=== PATIENT | female | born 1995 | race Caucasian/White ===

== ENCOUNTER 2024-03-16 11:40 | Emergency (ER) | payer SELFPAY ==
--- OUTSIDE RECORDS SUMMARY | 2024-03-16 11:43 | XMS REPORT | Continuity of Care Document ---
Author Name Unknown Address [address] [facility] [address] [place] [id number] [facility] thconnect Address [address] [facility] 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 Attending Clinician Yris baptiste KAIWHAKAHAERE, NURSE Attending Clinician Unavailable PHI ROSADO Admitting Clinician Un available Payers Payer Name Policy Type Policy Number Effective Date Expirati on Date Source [facility] Monitise [id number] 2022 00:00:00 [employer] [id number] 2019 00:00:00 Problems Condition Name Condition Details Condition Category Status Onset Date Resolution Date Last Treatment Date Treating Clinician Comments Source Nausea Nausea Disease Active - 00:00: 00 [facility] Tobacco use disorder complicati ng , childbirth , or puerperium , antepartum Tobacco use disorder complicati ng , childbirth , or puerperium , antepartum Disease Active 06-24 00:00: 00 Overview: Formattin g of this note might be different from the original. ICD10 Diagnosis Term [employer] Professor Utility [facility] Bipolar depression Bipolar depression Disease Active 06-24 00:00: 00 [facility] Seizure disorder in , antepartum Seizure disorder in , antepartum Disease Active 06-24 00:00: 00 [facility] History of substance abuse History of substance abuse Disease Active 06-24 00:00: 00 [facility] Supervisio n of high-risk of young primigravi da Supervisio n of high-risk of young primigravi da Disease Active 06-24 00:00: 00 [facility] History of Major depression , recurrent History of Major depression , recurrent Problem Resolve d [facility] History of Need for diphtheria -tetanus-p ertussis (Tdap) vaccine History of Need for diphtheria -tetanus-p ertussis (Tdap) vaccine Problem Resolve d [facility] History of Seizures History of Seizures Problem Resolve d [facility] control counseling control counseling Problem Active [facility] Absence seizure Absence seizure Problem Active [facility] Bipolar disorder (manic depression ) Bipolar disorder (manic depression ) Problem Active [facility] Routine follow-up Routine follow-up Problem Active [facility] Contracept ion management Contracept ion management Problem Active [facility] Allergies, Adverse Reactions, Alerts Allergy Name Allergy Type Status Severity Reaction(s) Onset Date Inactive Date Treating Clinician Comments Source QUETIAPI NE DRUG INGREDI Active Unknown-Cmnt 10-29 00:00: 00 [facility] Quetiapi ne Propensi ty to adverse reaction s Active Unknown - See comments 10-29 00:00: 00 Patient says she gets "all side effects" [facility] NO KNOWN ALLERGIE S Drug Class Active [facility] Social History Social Habit Start Date Stop Date Quantity Comments Source History of tobacco use Cigarette Smoker [facility] Exposure to SARS-CoV-2 (event) Not sure [facility] Alcohol intake 2020-02-15 00:00:00 2020-02-15 00:00:00 Current non-drinker of alcohol (finding) [facility] Tobacco use and exposure 2014-06-22 00:00:00 2014-06-22 00:00:00 Smokeless tobacco non-user [facility] Tobacco Comment 2014-06-22 00:00:00 2014-06-22 00:00:00 1-2 cig every 1-2 day(states takes a couple of puffs only) [facility] Sex Assigned At 1995 00:00:00 1995 00:00:00 [facility] Smoking Status Start Date Stop Date Source Never smoked tobacco (finding) [facility] Smokes tobacco daily 2014-06-22 00:00:00 [facility] Medications Ordered Medication Name Filled Medication Name Start Date Stop Date Current Medication? Ordering Clinician Indication Dosage Frequency Signature (SIG) Comments Components Source Norethindro ne 0.35 MG Oral Tablet Norethindro ne 0.35 MG Oral Tablet 12-21 00:00: 00 Yes LUIS FELIPE ALCARAZ M.D. 1 QD TAKE 1 TABLET DAILY. [facility] DIVALPROEX SODIUM (DEPAKOTE ORAL) 08-14 17:13: 32 Yes Take by mouth. [facility] albuterol 90 mcg/actuati on inhaler 08-14 17:13: 32 Yes 2{puff} Inhale 2 Puffs every 6 (six) hours as needed for Wheezing or Shortness of Breath. [facility] FOLIC ACID ORAL 08-14 17:11: 07 Yes Take by mouth. [facility] QUETIAPINE FUMARATE (SEROQUEL ORAL) 08-14 17:11: 07 Yes Take by mouth. [facility] LORAZEPAM (ATIVAN ORAL) 08-14 17:11: 07 Yes Take by mouth. [facility] PREGABALIN (LYRICA ORAL) 08-14 17:11: 07 Yes Take by mouth. [facility] DIVALPROEX SODIUM (DEPAKOTE ORAL) 08-14 12:13: 32 Yes Take by mouth. [facility] albuterol 90 mcg/actuati on inhaler 08-14 12:13: 32 Yes 2{puff} Inhale 2 Puffs every 6 (six) hours as needed for Wheezing or Shortness of Breath. [facility] FOLIC ACID ORAL 08-14 12:11: 07 Yes Take by mouth. [facility] bromphenira mine-pseudo ephedrine-D M 2-30-10 mg/5 mL syrup 08-14 00:00: 00 Yes [id number] 10mL Take 10 mL by mouth 4 (four) times daily as needed for Cough. [facility] ondansetron (ZOFRAN, HYDROCHLORI DE,) 4 mg tablet 07-19 00:00: 00 Yes 4mg Take 1 Tab by mouth every 8 (eight) hours. [facility] ARIPIPRAZOL E (ABILIFY ORAL) 06-22 16:11: 36 Yes Take by mouth. [facility] ARIPIPRAZOL E (ABILIFY ORAL) 06-22 10:11: 36 Yes Take by mouth. [facility] multivitami n ( VITAMIN) tablet 06-22 00:00: 00 Yes 1{tbl} Take 1 Tab by mouth daily. [facility] lamoTRIgine 200 MG Oral Tablet lamoTRIgine 200 MG Oral Tablet Yes [facility] lamoTRIgine 100 MG Oral Tablet lamoTRIgine 100 MG Oral Tablet Yes [facility] Abilify TABS Abilify TABS Yes [facility] Folic Acid TABS Folic Acid TABS Yes [facility] Ferrous Sulfate TABS Ferrous Sulfate TABS Yes [facility] Vital Signs Vital Name Observation Time Observation Value Comments Marco Antonio collins Systolic blood pressure 2022-10-29 21:10:13 145 mm[Hg] [facility] Diastolic blood pressure 2022-10-29 21:10:13 87 mm[Hg] [facility] Heart rate 2022-10-29 21:10:13 103 /min [facility] Body temperature 2022-10-29 21:10:13 37.39 Marleni [facility] Respiratory rate 2022-10-29 21:10:13 16 /min [facility] Body height 2022-10-29 21:08:00 160 cm [facility] Body weight 2022-10-29 21:08:00 62.37 kg [facility] BMI 2022-10-29 21:08:00 24.36 kg/m2 [facility] Oxygen saturation in Arterial blood by Pulse oximetry 2022-10-29 21:08:00 98 /min [facility] Systolic blood pressure 2020-02-15 13:35:00 118 mm[Hg] [facility] Diastolic blood pressure 2020-02-15 13:35:00 86 mm[Hg] [facility] Heart rate 2020-02-15 13:35:00 76 /min [facility] Systolic blood pressure 2019-12-22 09:10:00 121 mm[Hg] Location: LLE; Position: Sitting [facility] Diastolic blood pressure 2019-12-22 09:10:00 76 mm[Hg] Location: LLE; Position: Sitting [facility] Body height 2019-12-22 09:10:00 62 [in_us] [facility] Weight 2019-12-22 09:10:00 160.25 [lb_av] [facility] Body mass index (BMI) [Ratio] 2019-12-22 09:10:00 29.31 kg/m2 [facility] Body temperature 2019-12-22 09:10:00 97.9 [degF] [facility] Heart Rate 2019-12-22 09:10:00 75 /min [facility] Procedures Procedure Date / Time Performed Performing Clinicia n Source ASSIGNMENT OF BENEFITS 2022-10-29 22:28:41 Docto r Unassigned, [place] [facility] POCT TEST 2022-10-29 22:21:00 Naila Chapa [facility] NOTICE OF PRIVACY PRACTICES 2022-10-29 20:56:21 Doctor Unassigned, [place] [facility] CONSENT/REFUSAL FOR DIAGNOSIS AND TREATMENT 2022-10-29 20:55:26 Doctor Unassigned, [place] [facility] Encounters Start Date/Time End Date/Time Encounter Type Admission Type Attending Clinicians Care Facility Care Department Encounter ID Source 2022-07-02 14:01:51 Outpatient [facility] [id number] [facility] [place] [place] 2022-06-29 09:41:18 Inpatient PHI ROSADO [facility] [id number] [facility] 2022-06-16 15:05:35 Outpatient [facility] [id number] [facility] [place] [place] 2022-05-18 07:26:39 Outpatient [facility] [id number] [facility] [place] [place] 2022-05-12 14:05:05 Outpatient [facility] [id number] [facility] [place] [place] 2022-05-11 09:24:18 Outpatient [facility] [id number] [facility] [place] [place] 2022-04-29 11:55:17 Outpatient [facility] [id number] [facility] [place] [place] 2022-02-16 06:35:58 Outpatient [facility] [id number] [facility] [place] [place] 2022-02-13 09:50:38 Outpatient [facility] [id number] [facility] [place] [place] 2022-02-10 11:25:10 Outpatient [facility] [id number] [facility] [place] [place] 2022-02-06 13:45:41 Outpatient [facility] [id number] [facility] [place] [place] 2022-02-05 11:28:30 Outpatient [facility] [id number] [facility] [place] [place] 2022-02-03 10:37:01 Outpatient [facility] [id number] [facility] [place] [place] 2022-01-23 09:02:34 Outpatient [facility] [id number] [facility] [place] [place] 2022-10-29 16:32:00 2022-10-29 17:57:00 Emergency X NAILA CHAPA [facility] [id number] [facility] 2022-10-29 16:32:00 2022-10-29 17:57:00 Emergency Naila Chapa [facility] [id number] [facility] 2022-06-28 15:00:00 2022-06-30 16:05:00 Inpatient PHI SIMPSON [facility] [id number] [facility] 2022-05-18 11:30:00 2022-05-18 13:47:52 Outpatient [facility] [id number] [facility] [place] [place] 2022-02-13 11:00:00 2022-02-13 12:48:18 Outpatient [facility] [id number] [facility] [place] [place] 2022-02-13 11:00:00 2022-02-13 11:00:00 Outpatient [facility] [id number] [facility] [place] [place] 2022-02-13 10:15:00 2022-02-13 10:52:34 Outpatient [facility] [id number] [facility] [place] [place] 2022-02-13 10:00:00 2022-02-13 10:00:00 Outpatient [facility] [id number] [facility] [place] [place] 2020-02-15 08:25:40 2020-02-15 08:51:43 Office Visit Woody Vargas [facility] [id number] [facility] 2020-02-15 08:45:00 2020-02-15 08:45:00 Outpatient R WOODY VARGAS [facility] [id number] [facility] 2019-12-22 09:00:00 2019-12-22 09:00:00 Appointmen t; LUIS FELIPE ALCARAZ M.D. LUIS FELIPE ALCARAZ M.D. [facility] [id number] [facility] 2019-09-26 09:00:00 2019-09-26 09:00:00 Appointmen t; KAIWHAKAHAERE, NURSE KAIWHAKAHAERE, NURSE [facility] [id number] [facility] 2019-06-27 09:00:00 2019-06-27 09:00:00 Appointmen t; KAIWHAKAHAERE, NURSE KAIWHAKAHAERE, NURSE [facility] UTP [id number] [facility] 2019-03-28 09:00:00 2019-03-28 09:00:00 Appointmen t; KAIWHAKAHAERE, NURSE KAIWHAKAHAERE, NURSE [facility] UTP [id number] [facility] 2018-12-27 09:30:00 2018-12-27 09:30:00 Appointmen t; KAIWHAKAHAERE, NURSE KAIWHAKAHAERE, NURSE [facility]TP [id number] [facility] 2018-09-27 09:30:00 2018-09-27 09:30:00 Appointmen t; KAIWHAKAHAERE, NURSE KAIWHAKAHAERE, NURSE [facility]TP [id number] [facility] 2018-06-29 10:00:00 2018-06-29 10:00:00 Appointmen t; KAIWHAKAHAERE, NURSE KAIWHAKAHAERE, NURSE [facility] UTP [id number] [facility] 2018-03-30 10:00:00 2018-03-30 10:00:00 Appointmen t; KAIWHAKAHAERE, NURSE KAIWHAKAHAERE, NURSE [facility]TP [id number] [facility] 2017-12-29 10:00:00 2017-12-29 10:00:00 Appointmen t; KAIWHAKAHAERE, NURSE KAIWHAKAHAERE, NURSE [facility]TP [id number] [facility] Results Test Description Test Time Test Comments Results Result Co mments Source [facility]
--- NOTE | 2024-03-16 14:37 | RAD REPORT ---
EXAM: Right upper quadrant ultrasound. CLINICAL HISTORY: HERNIA COMPARISON: None. FINDINGS: Moderate umbilical hernia suspected. Contents appear to have the sonographic appearance of bowel and fat. IMPRESSION: Moderate umbilical hernia suspected.
[2024-03-16 14:57] LABS: Absolute Basophils 0.1 K/uL (0-0.5); Absolute Monocytes 0.6 K/uL (0.1-1.3); Absolute Neutrophil 8.7 K/uL (1.8-8.0); Basophils % 0.5 % (0-1.3); Eosinophils % 0.4 % (0-4.4); Hematocrit 38.8 % (36.0-45.0); Hemoglobin 13.3 g/dL (12.0-15.0); Lymphocytes % 23.9 % (15.3-44.8); MCH 31.9 pg (27.0-35.0); MCHC 34.4 g/dL (32.0-36.0); MCV 92.7 fL (80-100); MPV 7.2 fL (7.6-11.3); Monocytes % 4.9 % (3.3-12.3); Neutrophils % 70.3 % (41.7-73.7); Platelets 300 thou/uL (152-406); RBC Red Blood Cell Count 4.19 M/uL (3.86-4.86); Red Cell Distribution Width 13.3 % (12.1-15.2)
[2024-03-16] MEDS ORDERED: ONDANSETRON 4 MG/2 ML VIAL ONE (15:11)
[2024-03-16 15:12] LABS: ALT/SGPT 16 U/L (13-56); AST/SGOT < 10 U/L (15-37); Albumin 3.5 g/dL (3.4-5.0); Albumin/Globulin Ratio 0.9 (1.1-1.8); Alkaline Phosphatase 51 U/L (45-117); Anion Gap 8.5 mEq/L (5.0-15.0); BUN Blood Urea Nitrogen 8 mg/dL (7-18); Bicarbonate 23 mEq/L (21-32); Bilirubin Total 0.2 mg/dL (0.2-1.0); Globulin 3.9 g/dL (2.3-3.5); Glomerular Filtration Rate 137 ml/min (=/>90); Glucose Level 83 mg/dL (74-106); Lipase 21 U/L (13-75); Potassium 3.5 mEq/L (3.5-5.1); Protein, Total 7.4 g/dL (6.4-8.2); Sodium Level 136 mEq/L (136-145)
--- NOTE | 2024-03-16 15:29 | ER ---
Nurse's Notes [facility] Name: Sade Lira Age: 28 yrs Sex: Female : 1995 Arrival Date: 03/16/2024 Time: 11:40 Bed 16 Private MD: Diagnosis: Umbilical hernia without obstruction or gangrene;Nausea Presentation: 03/16 12:07 Chief complaint: Patient states: Has umbilical hernia, usually able to push back in herself, states that she is approx 11 weeks and feels like it is getting worse, instructed to come to ED by OB. Coronavirus screen: Vaccine status: Patient reports being unvaccinated. Ebola Screen: No symptoms or risks identified at this time. Initial Sepsis Screen: Does the patient meet any 2 criteria? No. Patient's initial sepsis screen is negative. Does the patient have a suspected source of infection? No. Patient's initial sepsis screen is negative. Risk Assessment: Do you want to hurt yourself or someone else? Patient reports no desire to harm self or others. Onset of symptoms was March 16, 2024. 12:07 Method Of Arrival: Ambulatory 12:07 Acuity: MARU 3 ph Historical: - Allergies: 12:12 Seroquel; ph - PMHx: 12:12 None; ph - PSHx: 12:12 None; ph - Immunization history:: Adult Immunizations unknown. - Infectious Disease History:: Denies. - Social history:: Smoking status: Patient reports the use of cigarette tobacco products, smokes one-half pack cigarettes per day. Screenin:[address] [facility] ED Fall Risk Assessment (Adult) History of falling in the last 3 months, db including since admission No falls in past 3 months (0 pts) Confusion or Disorientation No (0 pts) Intoxicated or Sedated No (0 pts) Impaired Gait No (0 pts) Mobility Assist Device Used No (0 pt) Altered Elimination No (0 pt) Score/Fall Risk Level 0 - 2 = Low Risk Oriented to surroundings, Maintained a safe environment. Abuse screen: Denies threats or abuse. Denies injuries from another. Nutritional screening: No deficits noted. Tuberculosis screening: No symptoms or risk factors identified. Assessment: 14:28 Reassessment: PT IS NOT IN ROOM AT THIS TIME. db 14:40 Reassessment: Patient appears in no apparent distress at this time. Patient and/or db family updated on plan of care and expected duration. Pain level reassessed. Patient is alert, oriented x 3, equal unlabored respirations, skin warm/dry/pink. General: Appears in no apparent distress. uncomfortable, Behavior is calm, cooperative. Pain: Complains of pain in abdomen. Neuro: Level of Consciousness is awake, alert, obeys commands, Oriented to person, place. Respiratory: Airway is patent Respiratory effort is even, unlabored, Respiratory pattern is regular, symmetrical. GI: Abdomen is distended, Bowel sounds present X 4 quads. Abd is soft Reports lower abdominal pain, upper abdominal pain. 15:17 Reassessment: Patient appears in no apparent distress at this time. Patient and/or db family updated on plan of care and expected duration. Pain level reassessed. Patient is alert, oriented x 3, equal unlabored respirations, skin warm/dry/pink. Reassessment: PT REPORTED NAUSEA. SEE MAR FOR ZOFRAN ADMINISTRATION. General: Appears in no apparent distress. comfortable, Behavior is calm, cooperative. 15:42 Reassessment: Patient appears in no apparent distress at this time. Patient and/or db family updated on plan of care and expected duration. Pain level reassessed. Patient is alert, oriented x 3, equal unlabored respirations, skin warm/dry/pink. General: Appears in no apparent distress. comfortable, Behavior is calm, cooperative. Vital Signs: 12:07 BP 153 / 105; Pulse 117; Resp 91; Temp 98; Pulse Ox 100% on R/A; Weight 58.97 kg; ph Height 5 ft. 3 in. ; 15:08 BP 119 / 97; Pulse 67; Resp 18; Pulse Ox 100% on R/A; db 15:30 BP 116 / 69; Pulse 78; Resp 16; Pulse Ox 98% on R/A; db 12:07 Body Mass Index 23.03 (58.97 kg, 160.02 cm) ph ED Course: 11:45 Patient arrived in ED. mg5 12:00 Abbey Hobbs MD is Attending Physician. gb1 12:12 Triage completed. ph 12:12 Arm band placed on Patient placed in waiting room, Patient notified of wait time. ph 14:24 US Abdomen Limited In Process Unspecified. EDMS 14:28 Ana Maria Riggs, RN is Primary Nurse. db 14:40 Patient has correct armband on for positive identification. Bed in low position. Call db light in reach. Side rails up X 1. Pulse ox on. NIBP on. Pillow given. 14:40 Initial lab(s) drawn, by me, sent to lab. Inserted saline lock: 20 gauge in left db antecubital area, using aseptic technique. Blood collected. Flushed with 10 mL NS. 15:42 Provided Education on: DISCHARGE. db 15:42 No provider procedures requiring assistance completed. IV discontinued, intact, db bleeding controlled, No redness/swelling at site. Administered Medications: 15:12 Drug: Ondansetron IVP 4 mg IVP once; over 2 minutes Route: IVP; Site: left antecubital; db 15:43 Follow up: Response: No adverse reaction; Nausea is decreased db Medication: 14:54 VIS not applicable for this client. db Outcome: 15:28 Discharge ordered by . gb1 15:42 Discharged to home ambulatory, with family, db 15:42 Condition: stable 15:42 Discharge instructions given to patient, Instructed on discharge instructions, follow up and referral plans. Prescriptions given X 1, 15:49 Patient left the ED. db Signatures: Dispatcher [employer] EDKatya Reyes RN RN ph Benton, Danielle, RN RN Nubia Cash mg5 Abbey Hobbs MD MD gb1
--- NOTE | 2024-03-16 15:29 | EDPHYS ---
Physician Documentation [facility] Name: Sade Lira Age: 28 yrs Sex: Female : 1995 Arrival Date: 03/16/2024 Time: 11:40 Bed 16 Private MD: ED Physician Abbey Hobbs HPI: 03/16 15:29 This 28 yrs old Female presents to ER via Ambulatory with complaints of gb1 Abdominal Pain. 15:29 28-year-old female at 11 weeks gestation reported here with a history of an gb1 umbilical hernia that is worse now that she is . She denies any vaginal bleeding she is nauseated and not vomiting. She also states that she has had this issue before but now in it has been much worse with difficulty not able to reduce the hernia. Symptoms are worse after she eats.. Historical: - Allergies: 12:12 Seroquel; ph - PMHx: 12:12 None; ph - PSHx: 12:12 None; ph - Immunization history:: Adult Immunizations unknown. - Infectious Disease History:: Denies. - Social history:: Smoking status: Patient reports the use of cigarette tobacco products, smokes one-half pack cigarettes per day. Exam: 15:29 Constitutional: This is a well developed, well nourished patient who is awake, alert, gb1 and in no acute distress. Head/Face: Normocephalic, atraumatic. Eyes: Pupils equal round and reactive to light, extra-ocular motions intact. Lids and lashes normal. Conjunctiva and sclera are non-icteric and not injected. Cornea within normal limits. Periorbital areas with no swelling, redness, or edema. ENT: Nares patent. No nasal discharge, no septal abnormalities noted. Tympanic membranes are normal and external auditory canals are clear. Oropharynx with no redness, swelling, or masses, exudates, or evidence of obstruction, uvula midline. Mucous membranes moist. Neck: Trachea midline, no thyromegaly or masses palpated, and no cervical lymphadenopathy. Supple, full range of motion without nuchal rigidity, or vertebral point tenderness. No Meningismus. Chest/axilla: Normal chest wall appearance and motion. Nontender with no deformity. No lesions are appreciated. Cardiovascular: Regular rate and rhythm with a normal S1 and S2. No gallops, murmurs, or rubs. Normal PMI, no JVD. No pulse deficits. Respiratory: Lungs have equal breath sounds bilaterally, clear to auscultation and percussion. No rales, rhonchi or wheezes noted. No increased work of breathing, no retractions or nasal flaring. Abdomen/GI: Soft, tender at the area of the umbilicus where she has a reducible small hernia. With normal bowel sounds. No distension or tympany. No guarding or rebound. Back: No spinal tenderness. No costovertebral tenderness. Full range of motion. Skin: Warm, dry with normal turgor. Normal color with no rashes, no lesions, and no evidence of cellulitis. MS/ Extremity: Pulses equal, no cyanosis. Neurovascular intact. Full, normal range of motion. Neuro: Awake and alert, GCS 15, oriented to person, place, time, and situation. Cranial nerves II-XII grossly intact. Motor strength 5/5 in all extremities. Sensory grossly intact. Cerebellar exam normal. Normal gait. Vital Signs: 12:07 BP 153 / 105; Pulse 117; Resp 91; Temp 98; Pulse Ox 100% on R/A; Weight 58.97 kg; ph Height 5 ft. 3 in. ; 15:08 BP 119 / 97; Pulse 67; Resp 18; Pulse Ox 100% on R/A; db 15:30 BP 116 / 69; Pulse 78; Resp 16; Pulse Ox 98% on R/A; db 12:07 Body Mass Index 23.03 (58.97 kg, 160.02 cm) ph MDM: 12:13 Medical Screening Exam initiated gb1 15:29 Data reviewed: lab test result(s), CBC, electrolytes, hepatic panel, radiologic gb1 studies, ultrasound. 15:29 ED course: 28-year-old female at 11 weeks gestation here with a reducible identical gb1 hernia. Abdominal limited ultrasound reports a small umbilical hernia with some bowel and fat. I discussed the case with Dr. Richard of who recommended general referral to an [facility]URITY [facility]S SPECIALIST with dual surgery evaluation. At this time there would be no emergent indication for operative repair at this time. I doubt incarcerated hernia, gangrene or small bowel obstruction. 03/16 12:14 Order name: CBC with Diff; Complete Time: 15:09 gb1 03/16 12:14 Order name: CMP; Complete Time: 15:28 gb1 03/16 12:14 Order name: Lipase; Complete Time: 15:28 gb1 03/16 14:10 Order name: US Abdomen Limited; Complete Time: 14:52 gb1 03/16 12:14 Order name: IV Saline Lock; Complete Time: 14:56 gb1 03/16 12:14 Order name: Labs collected and sent; Complete Time: 14:56 gb1 Administered Medications: 15:12 Drug: Ondansetron IVP 4 mg IVP once; over 2 minutes Route: IVP; Site: left antecubital; db 15:43 Follow up: Response: No adverse reaction; Nausea is decreased db Disposition Summary: 03/16/24 15:28 Discharge Ordered Notes: Location: Home gb1 Problem: chronic gb1 Symptoms: have improved gb1 Condition: Stable gb1 Diagnosis - Umbilical hernia without obstruction or gangrene gb1 - Nausea gb1 Followup: gb1 - With: Private Physician - When: - Reason: Continuance of care Discharge Instructions: - Discharge Summary Sheet gb1 - Umbilical Hernia, Adult gb1 Forms: - Medication Reconciliation Form gb1 - Antibiotic Education gb1 - Prescription Opioid Use gb1 - Patient Portal Instructions gb1 - Leadership Thank You Letter gb1 Prescriptions: - Zofran 4 mg Oral Tablet - take 1 tablet ORAL route every 12 hours As needed; 20 tablet; Refills: 0, gb1 Product Selection Permitted Signatures: Dispatcher [employer] EDKatya Reyes RN RN ph Benton, Danielle, RN RN db Blocker, Gina, MD MD gb1 Corrections: (The following items were deleted from the chart) 12:14 12:14 CBC+H.LAB.BRZ ordered. EDMS EDMS 12:14 12:14 COMPREHENSIVE METABOLIC PANEL+C.LAB.BRZ ordered. EDMS EDMS 12:14 12:14 LIPASE+C.LAB.BRZ ordered. EDMS EDMS
[2024-03-16 16:00] VITALS: TEMP 98
[2024-03-16 16:02] VITALS: BP 116/69; O2SAT 98
== END 2024-03-16 15:49 | disposition home or self-care (01) ==
LOC: ER 11:40
DX: O26.891 Other specified pregnancy related conditions, first trimester (principal); K42.9 Umbilical hernia without obstruction or gangrene; Z3A.11 11 weeks gestation of pregnancy
CPT/HCPCS: 36415; 76705; 80053; 83690; 85025; 96374; 99284; J2405